=== PATIENT | female | born 2000 | race Caucasian/White ===

== ENCOUNTER 2019-02-03 07:16 | Emergency (ER) | payer OTHER ==
[2019-02-03 07:31] VITALS: BP 128/91
--- NOTE | 2019-02-03 07:56 | UC ---
Complaint Female HPI - HPI Summary HPI Summary: 18-year-old female with a history of recurrent UTIs in the past, presents with dysuria since 5 AM this morning. Patient reports frequency, dysuria. No hematuria. No abdominal pain or fevers. Patient states last UTI was several years ago. No vaginal discharge or bleeding, last menstrual period 1 week ago. On control. - History Of Current Complaint Chief Complaint: UCGU Stated Complaint: URINE ISSUES Time Seen by Provider: 02/03/19 07:19 Hx Last Menstrual Period: 01/28/19 Pain Intensity: 5 - Allergies/Home Medications Allergies/Adverse Reactions: Allergies Allergy/AdvReac Type Severity Reaction Status Date / Time amoxicillin Allergy Unknown Verified 02/03/19 07:31 Reaction Details Home Medications: Home Medications Amitriptyline TAB* [Elavil TAB*] 10 mg PO BEDTIME PRN 02/03/19 [History Confirmed 02/03/19] Levonorgestrel-Ethin Estradiol [Kurvelo] 1 tab PO 02/03/19 [History] PMH/Surg Hx/FS Hx/Imm Hx Previously Healthy: Yes - Surgical History Surgical History: Yes Surgery Procedure, Year, and Place: LYMPH NODE REMOVAL RIGHT NECK - Family History Known Family History: Positive: Non-Contributory - Social History Alcohol Use: None Substance Use Type: None Smoking Status (MU): Never Smoked Tobacco Have You Smoked in the Last Year: No - Immunization History Vaccination Up to Date: Yes Review of Systems All Other Systems Reviewed And Are Negative: Yes Genitourinary: Positive: Dysuria, Frequency, Urgency. Negative: Hematuria, Vaginal/Penile Burning, Vaginal/Penile Discharge Physical Exam - Summary Physical Exam Summary: General: Well appearing, no distress Cardiovascular: Skin is well perfused Pulmonary: No respiratory distress, no tachypnea Abdomen: Non-distended, nontender. No flank tenderness Skin: Warm, pink, dry Psych: Normal affect Neuro: A&Ox3 Vital Signs: Initial Vital Signs Temp 36.6 C 02/03/19 07:27 Pulse 84 02/03/19 07:27 Resp 18 02/03/19 07:27 BP 128/91 02/03/19 07:27 Pulse Ox 100 02/03/19 07:27 Re-Evaluation - Re-Evaluation First Eval Comment: UA w 1+ LE, send on macrobid 5 days, UC sent Complaint Female Dx - Course Course Of Treatment: 18-year-old female with dysuria for 1 day, check urine - Differential Dx/Diagnosis Provider Diagnosis: UTI (urinary tract infection) Discharge - Sign-Out/Discharge Documenting (check all that apply): Patient Departure All imaging exams completed and their final reports reviewed: No Studies - Discharge Plan Condition: Stable Disposition: HOME Prescriptions: Nitrofurantoin Monohyd/M-Cryst [Macrobid 100 mg Capsule] 100 mg PO BID 5 Days # 10 cap Patient Education Materials: Urinary Tract Infection in Women (ED) Referrals: Danny Finley JR, PA [Primary Care Provider] - Additional Instructions: You were seen in the emergency department for a urinary tract infection. We sent a urine culture and we'll call you if antibiotic is not appropriate. Seek medical care if you have worsening pain, fevers, chills, abdominal pain or if you are concerned. - Billing Disposition and Condition Condition: STABLE Disposition: Home
[2019-02-03 12:08] LABS: Urine Appearance Cloudy; Urine Bacteria Absent (Absent); Urine Bilirubin Negative (Negative); Urine Blood Negative (Negative); Urine Color Yellow; Urine Glucose Negative (Negative); Urine Ketones Negative (Negative); Urine Nitrite Negative (Negative); Urine Protein Negative (Negative); Urine Red Blood Cell 1+(3-5/hpf) (Absent); Urine Specific Gravity 1.021 (1.010-1.030); Urine Squamous Epithelial Cell Present (Absent); Urine Urobilinogen Negative (Negative); Urine White Blood Cell 3+(>20/hpf) (Absent)
--- NOTE | 2019-02-04 17:20 | UC ---
- Progress Note Progress Note: Preliminary urine culture - E. coli 25-50,000 CFU/ml. Sensitivity pending. On Macrobid. Course/Dx - Diagnoses Provider Diagnoses: UTI (urinary tract infection) Discharge - Sign-Out/Discharge Documenting (check all that apply): Post-Discharge Follow Up All imaging exams completed and their final reports reviewed: No Studies - Discharge Plan Condition: Stable Disposition: HOME Prescriptions: Nitrofurantoin Monohyd/M-Cryst [Macrobid 100 mg Capsule] 100 mg PO BID 5 Days # 10 cap Patient Education Materials: Urinary Tract Infection in Women (ED) Referrals: Danny Finley JR, PA [Primary Care Provider] - Additional Instructions: You were seen in the emergency department for a urinary tract infection. We sent a urine culture and we'll call you if antibiotic is not appropriate. Seek medical care if you have worsening pain, fevers, chills, abdominal pain or if you are concerned. - Billing Disposition and Condition Condition: STABLE Disposition: Home - Attestation Statements Provider Attestation: I was available for consult. This patient was seen by the ARLEN. The patient was not presented to, seen by, or examined by me. -Cora
--- NOTE | 2019-02-05 17:10 | UC ---
- Progress Note Progress Note: + E coli sensitive to macrobid no change vivianaj 02/05/19 Course/Dx - Diagnoses Provider Diagnoses: UTI (urinary tract infection) Discharge - Sign-Out/Discharge Documenting (check all that apply): Post-Discharge Follow Up All imaging exams completed and their final reports reviewed: No Studies - Discharge Plan Condition: Stable Disposition: HOME Prescriptions: Nitrofurantoin Monohyd/M-Cryst [Macrobid 100 mg Capsule] 100 mg PO BID 5 Days # 10 cap Patient Education Materials: Urinary Tract Infection in Women (ED) Referrals: Danny Finley JR, PA [Primary Care Provider] - Additional Instructions: You were seen in the emergency department for a urinary tract infection. We sent a urine culture and we'll call you if antibiotic is not appropriate. Seek medical care if you have worsening pain, fevers, chills, abdominal pain or if you are concerned. - Billing Disposition and Condition Condition: STABLE Disposition: Home
== END 2019-02-03 08:37 | disposition home or self-care (01) ==
LOC: UCEAST 07:16
DX: N39.0 Urinary tract infection, site not specified (principal)
CPT/HCPCS: 81002; 81003; 81015; 81025; 87077; 87086; 87186; 99202; G0463

== ENCOUNTER 2019-06-23 19:04 | Emergency (ER) | payer OTHER ==
--- NOTE | 2019-06-23 20:04 | ED ---
- HPI Summary HPI Summary: Patient is a 18 y/o F presenting to [facility] for evaluation of needle stick to thumb. 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 The patient has been milking blood from needle stick site. There are no concerns for high risk exposure. Patient has received hepatitis vaccinations. Home medications and allergies are reviewed. - History of Current Complaint Chief Complaint: EDExposureBodyFluid Stated Complaint: EMPL NEEDLE STICK PER PT Time Seen by Provider: 06/23/19 20:02 Date of Incident: 06/23/19 Needlestick: Other - vacutainer Depth of Needlestick: Puncture Bleeding at Site: No - patient milking blood Body Fluid Exposure: Blood Treatment BURRER OPERATOR: Expressed Blood PMH/Surg Hx/FS Hx/Imm Hx Endocrine/Hematology History: Denies: Hx Diabetes Cardiovascular History: Denies: Hx Hypertension, Hx Pacemaker/ICD Respiratory History: Reports: Hx Asthma - sports induced Sensory History: Denies: Hx Hearing Aid Psychiatric History: Denies: Hx Panic Disorder - Surgical History Surgery Procedure, Year, and Place: LYMPH NODE REMOVAL RIGHT NECK Infectious Disease History: No Infectious Disease History: Denies: Traveled Outside the [place] in Last 30 Days - Family History Known Family History: Negative: Cardiac Disease, Hypertension, Diabetes - Social History Alcohol Use: None Substance Use Type: Reports: None Smoking Status (MU): Never Smoked Tobacco Have You Smoked in the Last Year: No Review of Systems Negative: Fever Skin: Other - positive - puncture wound, thumb All Other Systems Reviewed And Are Negative: Yes Physical Exam - Summary Physical Exam Summary: Appearance: Well-appearing, Well-nourished, lying in bed comfortable Skin: Small puncture wound to thumb. Warm, dry, no obvious rash Eyes: sclera anicteric, no conjunctival pallor ENT: mucous membranes moist Neck: deferred Respiratory: No signs of respiratory distress Cardiovascular: Appears well perfused, pulses are nml Abdomen: deferred Musculoskeletal: Moving all 4 extremities without obvious discomfort Neurological: Awake and alert, mentation is normal, speech is fluent and appropriate Psychiatric: affect is normal, does not appear anxious or depressed Triage Information Reviewed: Yes Vital Signs On Initial Exam: Initial Vitals Temp Pulse Resp BP Pulse Ox 98.6 F 100 20 136/99 100 06/23/19 19:10 06/23/19 19:10 06/23/19 19:10 06/23/19 19:10 06/23/19 19:10 Vital Signs Reviewed: Yes Procedures - Sedation Patient Received Moderate/Deep Sedation with Procedure: No Diagnostics - Vital Signs Vital Signs Temp Pulse Resp BP Pulse Ox 06/23/19 19:10 98.6 F 100 20 136/99 100 - Laboratory Lab Statement: Any lab studies that have been ordered have been reviewed, and results considered in the medical decision making process. Re-Evaluation - Re-Evaluation First Eval Re-Evaluation Time: 21:42 Comment: 2141 Patient requests to be discharged at this time as she has work at 0700 06/24/19. HIV testing results are still pending at this time. Patient will be informed of any concerning results. Patient was discharged to home and will [place] up [place] [facility] [place] [facility]. Needlestick Course/Dx - Course Course Of Treatment: Patient is a 18 y/o F presenting to [facility] for evaluation of needle stick to thumb. 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 The patient has been milking blood from needle stick site. There are no concerns for high risk exposure. Small puncture wound to thumb is noted. Hep B and Hep C testing were negative. 2141 Patient requests to be discharged at this time as she has work at 0700 06/24/19. HIV testing results are still pending at this time. Patient will be informed of any concerning results. Patient was discharged to home and will follow up with [facility] [place] [facility]. - Diagnoses Provider Diagnoses: Needlestick injury of finger Discharge ED - Sign-Out/Discharge Documenting (check all that apply): Patient Departure - discharge - Discharge Plan Condition: Stable Disposition: HOME Patient Education Materials: Needle Stick Injuries (ED) Referrals: Danny Finley JR, PA [Primary Care Provider] - Additional Instructions: Contact [facility] tomorrow for further followup instructions. - Billing Disposition and Condition Condition: STABLE Disposition: Home - Attestation Statements Document Initiated by Scribe: Yes Documenting Scribe: KAREN DE JESUS Provider For Whom Scribe is Documenting (Include Credential): ERLINDA HAINES MD Scribe Attestation: KAREN Desouza scribed for ERLINDA HAINES MD on 06/24/19 at 0421. Scribe Documentation Reviewed: Yes Provider Attestation: The documentation as recorded by the oksanaibeKAREN accurately reflects the service I personally performed and the decisions made by me, ERLINDA HAINES MD Status of [place] Document: Viewed
[2019-06-23 20:53] LABS: Hepatitis B Surface Antigen Nonreactive (Nonreactive)
[2019-06-23 21:10] LABS: Hepatitis B Surface Ab Immune (Immune)
[2019-06-23 21:11] LABS: Hepatitis C Antibody Negative (Negative)
[2019-06-23 22:11] VITALS: BP 152/96
[2019-06-23 22:24] LABS: HIV 4th Generation Nonreactive (Nonreactive)
== END 2019-06-23 22:10 | disposition home or self-care (01) ==
LOC: ED 19:04
DX: S61.039A Puncture wound without foreign body of unspecified thumb without damage to nail, initial encounter (principal); W46.1XXA Contact with contaminated hypodermic needle, initial encounter; Y93.89 Activity, other specified; Y92.230 Patient room in hospital as the place of occurrence of the external cause; Y99.0 Civilian activity done for income or pay
CPT/HCPCS: 36415; 84702; 86706; 86803; 87340; 87389; 99282